=== PATIENT | male | born 1965 | race Caucasian/White ===

== ENCOUNTER 2018-02-17 10:39 | Day surgery (SDC) | payer BC, OTHER ==
[2018-02-16 11:07] VITALS: BMI 39.0
[~2018-02-17] VITALS: Ht 180.3 cm; Wt 127.3 kg
[~2018-02-17 10:39] MED LIST: CHOL200010 PO; CYAN100048 PO; INTE1KIT4 SC; LACTATED RINGER'S 1000ML 1,000 ML IV SCH; MULT-506 PO; PRV100 PO; SIMV80TA5 PO; TURM500T PO; [UNRECOGNIZED DRUG - REMARK] PO
[2018-02-17] MEDS ORDERED: FLUO20CA35 PO (10:56)
[2018-02-17] MEDS ORDERED: TAMS0.4C38 PO (10:57)
[2018-02-17] MEDS ORDERED: SIMV80TA2 PO (11:00)
[2018-02-17] MEDS ORDERED: ACET-1256 PO (11:00)
[2018-02-17] MEDS ORDERED: magnesium PO (11:02)
[2018-02-17 11:10] VITALS: BP 132/79; TEMP 37.2; O2SAT 97; Ht 180.3 cm; Wt 127.3 kg
[2018-02-17] MEDS ORDERED: DexMEDEtomidine HCL IV 100 MCG/ML VIAL IV ONE (12:00)
[2018-02-17] MEDS ORDERED: MIDAZOLAM HCL 1 MG/ML 2ML VIAL ONE ×2 (12:03→12:34)
[2018-02-17] MEDS ORDERED: ONDANSETRON INJ 2 MG/ML 2 ML VIAL IV PRN (12:15)
[2018-02-17] MEDS ORDERED: ATROPINE SULFATE 0.1 MG/ML 5ML SYR IV PRN (12:15)
[2018-02-17] MEDS ORDERED: EpHEDrine SULFATE INJ 50 MG/ML AMP IV PRN (12:15)
[2018-02-17] MEDS ORDERED: PROPOFOL IV EMULSION 10 MG/ML 20 ML VIAL IV ONE (12:34)
[2018-02-17 13:15] VITALS: BP 96/61; PULSE 92; TEMP 36.6; O2SAT 95
--- NOTE | 2018-02-17 13:39 | Anesthesiology Progress Note ---
Anesthesia Post Op Note Date & Time Feb 17, 2018 at 13:35 Vital Signs Pain Intensity: 0 Vital Signs Past 12 Hours Date Time Temp Pulse Resp B/P (MAP) Pulse Ox O2 Delivery O2 Flow Rate FiO2 02/17/18 13:15 36.6 92 18 96/61 95 Room Air 02/17/18 11:10 37.2 18 132/79 (96) 97 Room Air Notes Mental Status: alert / awake / arousable, participated in evaluation Pt Amnestic to Procedure: No Nausea / Vomiting: adequately controlled Pain: adequately controlled Airway Patency, RR, SpO2: stable & adequate BP & HR: stable & adequate Hydration State: stable & adequate Anesthetic Complications: no major complications apparent Patient was given 8mg of versed and 40mcg of precedex and eventually put on a precedex drip to tolerate procecure. This resulted on a level of moderate sedation. However, he could not tolerate mri due to claustrophobia and his leg cramping. Due do disinhibition and his NEPTALI, deeper levels of sedation were not feasible to produce good conditions of non movement in the patient. As we cannot perform general anesthetic in the MRI suite at this facility, a decision was made to abort the procedure. He will need to have this done at a facility that can perform general anesthesia for MRI.
[2018-02-17 13:45] VITALS: BP 97/59; PULSE 90; TEMP 36.1; O2SAT 95
== END 2018-02-17 13:55 | disposition home or self-care (01) ==
LOC: C.ACU 10:39 → EDSTATUS 12:00 → C.ACU 13:55
PROVIDERS: ATTEND Psychiatry & Neurology Neurology
DX: G35 Multiple sclerosis (principal); G47.33 Obstructive sleep apnea (adult) (pediatric); Z99.89 Dependence on other enabling machines and devices; Z88.5 Allergy status to narcotic agent